=== PATIENT | female | born 1970 | race Caucasian/White ===

== ENCOUNTER 2016-07-28 08:38 | Observation (INO) | payer BC ==
[2016-07-25 10:16] LABS: BASOPHILS 0.5 %; BASOPHILS ABSOLUTE 0.03 10/3/uL (0.0-0.16); EOSINOPHILS 2.2 %; EOSINOPHILS ABSOLUTE 0.13 10/3/uL (0.0-0.53); HEMATOCRIT 40.7 % (36.0-48.0); HEMOGLOBIN 13.6 g/dL (12.0-16.0); IMMATURE GRANULOCYTES 0.2 %; IMMATURE GRANULOCYTES ABSOLUTE 0.01 10/3/uL (0.0-0.11); LYMPHOCYTES 34.4 %; LYMPHOCYTES ABSOLUTE 2.04 10/3/uL (0.67-4.30); MEAN CORPUS HGB CONC 33.4 g/dL (32.0-36.0); MEAN CORPUSCULAR HEMOGLOB 30.6 pg (26.0-34.0); MEAN CORPUSCULAR VOLUME 91.7 fL (80-100); MEAN PLATELET VOLUME 10.2 fL (9.2-13.0); MONOCYTES 5.6 %; MONOCYTES ABSOLUTE 0.33 10/3/uL (0.21-1.20); NEUTROPHILS 57.1 %; NEUTROPHILS ABSOLUTE 3.39 10/3/uL (2.02-8.40); PLATELET COUNT 332 10/3/uL (150-400); RBC DISTRIBUTION WIDTH 12.6 % (12.0-16.0); RED CELL COUNT 4.44 10/6/uL (4.0-5.6); WHITE BLOOD CELLS 5.9 10/3/uL (4.5-10.5)
[2016-07-25 10:17] LABS: MANUAL DIFF NO %
--- NOTE | ~2016-07-28 | OP ---
Record Of Operation [facility] [address] [place]. [address] NAME: SHARON JULIO : 72 STATUS : DIS Refugio PAT#: [id number] AGE: 46 ADM/REG DATE : 07/28/16 MR#: [id number] REPORT SERV DATE: 08/05/16 DICTATED BY: ERNESTO FATIMA DATE: 08/04/16 REPORT STATUS : Draft TRANSCRIBED BY: MODRic DATE: 08/04/16 DATE OF PROCEDURE: 07/28/2016 PREOPERATIVE DIAGNOSIS: Large fibroid uterus. POSTOPERATIVE DIAGNOSIS: Large fibroid uterus with a right ovarian cyst. PROCEDURES: Laparoscopic hysterectomy and bilateral salpingectomy, and right ovarian cystectomy, CPT code 61450. SURGEON: Ernesto Fatima M.D. ESTIMATED BLOOD LOSS: 50 mL. FLUIDS IN: 1600 mL of crystalloid. URINE OUTPUT: 600 mL. ANESTHESIA: General endotracheal. COMPLICATIONS: None. FINDINGS AND INDICATIONS: This is a 46-year-old female who presents with a large fibroid uterus. She was taken to the operating room, and has requested the ovaries be left in situ. She is noted to have a right ovarian cyst. A right ovarian cystectomy was performed. The uterus was removed intact through the vagina and examined on the back table with no gross evidence of malignancy. DESCRIPTION OF PROCEDURE: The patient was taken to the operating room. She was placed in supine position for administration of general anesthesia. She was then placed in dorsal lithotomy position and prepped and draped in the usual sterile fashion. A NAEEM uterine manipulator was placed through the uterine cervix and out the fundus and a JERONIMO ring was sutured to the patient's cervix. Our attention was then turned towards the anterior abdominal wall where an incision was made approximately 27 cm above the pubic symphysis and taken down to the underlying layer of fascia. The fascia was grasped with two sutures of 0 Vicryl, tented up, and entered sharply. The perineum was then tented up and entered sharply, and a laparoscopic trocar was placed under direct visualization. The abdominal cavity was insufflated. Two additional 8 mm trocars were placed and one additional 12 mm trocar was placed. The patient was then docked to the laparoscopic robotic instrument and the remainder of the procedure was performed via the da Stephen. The above findings were noted. Pelvic washings were taken. Both fallopian tubes were detached using a combination of bipolar and unipolar cautery, detached from the ovaries and left attached to the uterus. The retroperitoneal spaces were opened via the round ligaments, which were grasped with bipolar cautery, cauterized and transected bilaterally. The uterine arteries were identified at their origin and Hemoclips were placed to ensure long-term hemostasis. The utero-ovarian vessels were then isolated, grasped with bipolar cautery, cauterized and Record Of Operation [facility] [id number] [facility] [place]. [address] NAME: SHARON JULIO : 72 STATUS : DIS Refugio PAT#: [id number] AGE: 46 ADM/REG DATE : 07/28/16 MR#: [id number] REPORT SERV DATE: 08/05/16 DICTATED BY: ERNESTO FATIMA DATE: 08/04/16 REPORT STATUS : Draft TRANSCRIBED BY: MODL DATE: 08/04/16 transected. Both ovaries were initially placed in the upper pelvis. Anteriorly, a bladder flap was created and taken down to a level well below the cervix. The uterine arteries were then skeletonized at the level of the cervix, grasped with bipolar cautery, cauterized and transected bilaterally. The uterosacral cardinal complexes were then taken down with unipolar cautery and a circumferential incision was made around the cervix and vagina and the uterus, cervix, and bilateral fallopian tubes were delivered through the vagina with the above findings noted. Both ovaries were then sutured to the round ligaments bilaterally. The vaginal cuff was then closed with a running stitch of #1 PDS V-Loc. The pelvis was irrigated with copious amounts of warm water. All pedicles were inspected and found to be hemostatic. The laparoscopic instruments were removed. Both the initial port and the 12 mm port were closed with 0 Vicryl at the fascia. The skin sites were closed with 4-0 Vicryl at the skin and Dermabond was placed. Postprocedure, a cystoscopy was performed with excellent bilateral ureteral jets. No evidence of bladder defect. At the completion of the procedure, the anesthesia was reversed. The patient was extubated and brought to the recovery room in stable condition. ZARINA Ernesto Fatima M.D. / [id number] CC: Ernesto Fatima M.D.
[~2016-07-28 08:38] MED LIST: ADDERALL XR20 MG PO; EXCEDRIN EXTRA1 EACH PO; MULTIVIT/MIN PO; VALTREX5 PO
[2016-07-29] MEDS ORDERED: PCET PO (10:45)
[2016-07-29] MEDS ORDERED: ZOFRAN8 PO (10:45)
[2016-10-06] MEDS ORDERED: T PO (21:19)
[2016-10-06] MEDS ORDERED: EXCEDRIN MIGRA1 EAC1 PO (21:19)
[2016-10-06] MEDS ORDERED: OTC SLEEP AID PO (21:20)
[2016-10-06] MEDS ORDERED: ADDERALL20 MG PO (21:20)
[2016-10-06] MEDS ORDERED: TEARS PURE OPH (21:21)
== END 2016-07-29 12:29 | disposition home or self-care (01) ==
LOC: SDC 08:38 → 4EA 19:14
PROVIDERS: Obstetrics & Gynecology Gynecologic Oncology
PROC: 0UT74ZZ Resection of Bilateral Fallopian Tubes, Percutaneous Endoscopic Approach (ICD-10-PCS; 2016-07-28)
PROC: 0UT94ZZ Resection of Uterus, Percutaneous Endoscopic Approach (ICD-10-PCS; principal; 2016-07-28 10:30)
PROC: 0UTC4ZZ Resection of Cervix, Percutaneous Endoscopic Approach (ICD-10-PCS; 2016-07-28 10:30)
PROC: 0UT04ZZ Resection of Right Ovary, Percutaneous Endoscopic Approach (ICD-10-PCS; 2016-07-28 10:30)
DX: N87.9 Dysplasia of cervix uteri, unspecified (principal); N83.01 Follicular cyst of right ovary; G43.909 Migraine, unspecified, not intractable, without status migrainosus; F98.8 Other specified behavioral and emotional disorders with onset usually occurring in childhood and adolescence
CPT/HCPCS: 36415; 71020; 84703; 85025; 86304; 86850; 86900; 86901; 88112; 88305; 88307; 93005; A9270-GY; G0378; J0694; J1885; J2250; J2270; J2405; J2550; J2710; J2795; J3010